=== PATIENT | female | born 1970 | race African-American/Black ===

== ENCOUNTER 2016-12-25 17:56 | Emergency (ER) | payer SELFPAY ==
[2016-12-25 17:59] VITALS: BP 142/74
[2016-12-25] MEDS ORDERED: ORPHENADRINE CITRATE 60 MG/2 ML VIAL. IM ONE (18:30)
[2016-12-25] MEDS ORDERED: KETOROLAC TROMETHAMINE 60 MG/2 ML SYRINGE. IM ONE (18:30)
[2016-12-25] MEDS ORDERED: METH-37 PO (19:14)
[2016-12-25] MEDS ORDERED: HYDR-971 PO (19:14)
--- NOTE | 2016-12-25 19:15 | PHYS DOC ---
Past Medical History Past Medical History: No Pertinent History, Asthma Past Surgical History: No Surgical History Additional Information: Nonsmoker Alcohol Use: Occasionally Drug Use: Marijuana Adult General Chief Complaint Chief Complaint: [facility] HPI Patient is a 46 year old female who presents with shoulder pain for one month. She states that the pain started after cleaning her home. She denies any specific injury. She has been taking Tylenol and aspirin for pain at home without relief. She denies any chest pain or shortness of breath. Pain is worse with movement of the arm. The patient does not have a history of hypertension, hyperlipidemia, or diabetes. She is left-hand dominant. She does not have a PCP. Review of Systems Review of Systems Constitutional: Denies fever or chills. [] Respiratory: Denies cough or shortness of breath. [] Cardiovascular: Denies chest pain, palpitations or edema. [] Musculoskeletal: Denies back pain. Reports left shoulder pain. Integument: Denies rash or skin lesions. [] Neurologic: Denies headache, focal weakness or sensory changes. [] All systems reviewed and negative unless otherwise stated in the HPI. Current Medications Current Medications Current Medications Medications (Trade) Dose Ordered Sig/[facility] Start Time Stop Time Status Last Admin Dose Admin Ketorolac Tromethamine (Toradol Im) 60 mg 1X ONCE 12/25/16 18:30 12/25/16 18:31 DC 12/25/16 18:41 60 MG Orphenadrine Citrate (Norflex) 60 mg 1X ONCE 12/25/16 18:30 12/25/16 18:31 DC 12/25/16 18:40 60 MG Allergies Allergies Allergies Coded Allergies Type Severity Reaction Last Updated Verified No Known Drug Allergies 01/06/15 No Physical Exam Physical Exam Constitutional: Well developed, well nourished, no acute distress, non-toxic appearance. [] HENT: Normocephalic, atraumatic, oropharynx moist. [] Eyes: PERRLA, EOMI, conjunctiva normal, no discharge. [] Neck: Normal range of motion, no midline or paraspinal tenderness, supple, no stridor. [] Cardiovascular: Heart rate regular rhythm, no murmur. [] Lungs & Thorax: Bilateral breath sounds clear to auscultation without wheezes, rales, or rhonchi. There is no chest wall tenderness. Skin: Warm, dry, no erythema, no rash. [] Back: No midline tenderness, no CVA tenderness. [] Extremities: Diffuse left shoulder tenderness with A/C joint tenderness, significantly decreased abduction due to pain, no edema. 2+ radial and ulnar pulses. Less than 2 second capillary refill in the fingers. Light touch sensation intact in the fingers. There is no tenderness of the elbow, wrist, or hand. FROM of elbow, wrist, hand. Neurologic: Alert and oriented X 3, normal motor function, normal sensory function, no focal deficits noted. [] Psychologic: Affect normal, judgement normal, mood normal. [] Current Patient Data Vital Signs Vital Signs Date Time Temp Pulse Resp B/P Pulse Ox O2 Delivery O2 Flow Rate FiO2 12/25/16 17:59 97.9 64 20 100 Room Air 97.9 EKG EKG [] Radiology/Procedures Radiology/Procedures Three-view x-ray of the left shoulder reviewed and interpreted by myself with Dr. Brooks. There is mild A/C separation without acute fracture or other abnormality. Course & Med Decision Making Course & Med Decision Making Pertinent Labs and Imaging studies reviewed. (See chart for details) Patient presents with atraumatic left shoulder pain for one month. Pain is worse with movement of the arm. There is no associated chest pain or shortness of breath. On exam, the patient has tenderness to palpation and has decreased range of motion of the shoulder. She is neurovascularly intact without evidence of compartment syndrome. X-ray shows mild acromioclavicular separation without other acute abnormalities. The patient was provided with a sling for comfort. She is discharged with prescription for [place] and Robaxin. She is given contact information for orthopedics for follow-up. Return precautions were discussed. She verbalizes understanding and agrees with plan. Dragon Disclaimer Dragon Disclaimer This electronic medical record was generated, in whole or in part, using a voice recognition dictation system. Departure Departure Impression: Primary Impression: Shoulder pain, left Additional Impression: Acromioclavicular joint separation Disposition: 01 HOME, SELF-CARE Condition: STABLE Referrals: THERESA SCHNEIDER MD Patient Instructions: Acromioclavicular Injuries, [id number], Shoulder Pain, [id number] Additional Instructions: You have a mild separation of the joint between the collarbone in the shoulder blade. There were no other abnormalities on your x-ray. Please use the provided sling as needed for comfort. Please take the prescribed medication as directed. Do not drive or operate heavy machinery while taking these medications. Please follow-up with the orthopedic doctor listed below if your pain continues. Return to the emergency department if you have any new or concerning symptoms. Scripts Methocarbamol (Robaxin)500 Mg [id number] Mg PO QID #20 TAB Prov:TIMOTHY BROOKS 12/25/16 Hydrocodone/Apap 5-325 (Trent[place] 5-325 Tablet)1 Each Tablet1 Tab PO PRN Q6HRS PRN PAIN #20 TAB Prov:TIMOTHY BROOKS 12/25/16 Problem Qualifiers Primary Impression: Shoulder pain, left Chronicity: acute Qualified Code: M25.512 - Pain in left shoulder Additional Impression: Acromioclavicular joint separation Encounter type: initial encounter Laterality: left Qualified Code: S43.102A - Unspecified dislocation of left acromioclavicular joint, initial encounter TIMOTHY BROOKS Dec 25, 2016 19:15
--- NOTE | 2016-12-26 08:20 | RAD ---
Examination: 3 views of the left shoulder History: History of pain for one month, no injury Comparison: None available Findings: The humeral head is within the glenoid. There is minimal widening appearance of the acromioclavicular joint. There is no acute fracture identified. Impression: 1. No acute fracture identified. 2. There is mild widened appearance of the acromioclavicular joint could be secondary to positioning of the patient or due to mild AC joint separation. Correlate clinically.
== END 2016-12-25 19:23 | disposition home or self-care (01) ==
LOC: ER 17:56
DX: S43.102A Unspecified dislocation of left acromioclavicular joint, initial encounter (principal); F12.10 Cannabis abuse, uncomplicated; J45.909 Unspecified asthma, uncomplicated; X58.XXXA Exposure to other specified factors, initial encounter; Y93.E9 Activity, other interior property and clothing maintenance; Y92.009 Unspecified place in unspecified non-institutional (private) residence as the place of occurrence of the external cause; Y99.8 Other external cause status
CPT/HCPCS: 73030; 96372; 99284; J1885; J2360

== ENCOUNTER 2021-03-25 14:03 | Emergency (ER) | payer SELFPAY ==
[~2021-03-25] VITALS: Ht 157.5 cm; Wt 100.0 kg
[~2021-03-25 14:03] MED LIST: HYDR-3164 PO; METH-37 PO
[2021-03-25 14:35] VITALS: BP 146/79
[2021-03-25] MEDS ORDERED: DIPH,PERTUSS(ACELL),TET VAC/PF 0.5 ML SYRINGE. VAX IM ONE (14:45)
[2021-03-25] MEDS ORDERED: LIDOCAINE 2%/EPI 1:100,000 20 ML VIAL. INJ ONE (15:00)
[2021-03-25] MEDS ORDERED: CEPH500C PO (16:11)
--- NOTE | 2021-03-25 16:11 | ED.ADGEN ---
Past Medical History Past Medical History: Asthma Past Surgical History: No Surgical History Smoking Status: Current Every Day Smoker Alcohol Use: Occasionally Drug Use: Marijuana General Adult EDM: Chief Complaint: LACERATION/AVULSION HPI: HPI: Patient is a 50 year old AA female who presents emergency department with complaints of 2 lacerations to her lower left leg. Patient states that she was going up some steps and she fell and hit her legs on them that is how the lacerations occurred. Patient reports several years ago she had a dog bite in the affected area and she believes that the dog bites just opened again. She denies any numbness, tingling, or decreased sensation of the affected extremity. She is not sure when her last tetanus shot was. She currently rates pain a 5 out of 10 on pain scale, she denies any alleviating factors, the pain is worse if the areas are touched. Review of Systems: Review of Systems: Complete ROS is negative unless otherwise noted in HPI. Current Medications: Current Medications Medications (Trade) Dose Ordered Sig/Sonny Start Time Stop Time Status Last Admin Dose Admin Diphtheria/ Tetanus/Acell Pertussis (ADACEL TDap SYRINGE) 0.5 ml ONCE ONCE 03/25/21 14:45 03/25/21 14:47 DC 03/25/21 15:07 0.5 ML Lidocaine/ Epinephrine (LIDOCAINE 2%-EPI 1:100,000 multi-dose) 20 ml 1X ONCE 03/25/21 15:00 03/25/21 15:01 DC 03/25/21 15:06 20 ML Allergies: Allergies: Allergies Coded Allergies Type Severity Reaction Last Updated Verified No Known Drug Allergies 01/06/15 No Physical Exam: PE: See Above Constitutional: Well developed, well nourished, no acute distress, non-toxic appearance. [] HENT: Normocephalic, atraumatic, bilateral external ears normal, nose normal. [] Eyes: PERRLA, EOMI, conjunctiva normal, no discharge. [] Neck: Normal range of motion, no stridor. [] Cardiovascular:Heart rate regular rhythm Lungs & Thorax: Respirations even and unlabored, no retractions, no respiratory distress Skin: Warm, dry, no erythema, no rash; 2 lacerations to the anterior lower left leg, the superior laceration is stellate without any active bleeding or visible foreign body measuring roughly 4 cm total; the inferior laceration is curved and linear measuring 6 cm without any active bleeding or visible foreign body. [] Extremities: LLE: No bony tenderness or deformity, no crepitus, no cyanosis, ROM intact, no edema, 2+ posterior tibial pulse, sensation intact [] Neurologic: Alert and oriented X 3, no focal deficits noted. [] Psychologic: Affect normal, judgement normal, mood normal. [] Current Patient Data: Vital Signs: Vital Signs Date Time Temp Pulse Resp B/P (MAP) Pulse Ox O2 Delivery O2 Flow Rate FiO2 03/25/21 14:35 98.9 73 18 146/79 (101) 94 Room Air 98.9 EKG: EKG: [] Heart Score: C/O Chest Pain: No Risk Scores: Score 0 - 3: 2.5% MACE over next 6 weeks - Discharge Home Score 4 - 6: 20.3% MACE over next 6 weeks - Admit for Clinical Observation Score 7 - 10: 72.7% MACE over next 6 weeks - Early Invasive Strategies Radiology/Procedures: Radiology/Procedures: Laceration Repair by me: Anesthesia: 2% % lidocaine locally Location: Superior lower left extremity Tendon/Joint/Nerves: No injury Foreign body: None detected after copious irrigation and exploration with NS and chlorhexidine Technique: 8 Simple Interrupted Sutures with 4-0 Prolene Complexity: No subcutaneous sutures/mucosal repair/edge excision Post Closure Length: 4 cm Anesthesia: 2% % lidocaine locally Location: Inferior anterior lower left extremity Tendon/Joint/Nerves: No injury Foreign body: None detected after copious irrigation and exploration with NS and chlorhexidine Technique: 9 Simple Interrupted Sutures with with 4-0 Prolene Complexity: No subcutaneous sutures/mucosal repair/edge excision Post Closure Length: 6 cm Patient's bleeding was easily controlled in the department and there is no indication of anemia. No evidence of compartment syndrome, neurologic injury, vascular injury, open joint, tendon laceration, or foreign body. Patient is appropriate for outpatient follow up. Scar minimazation instructions given. [] [] Course & Med Decision Making: Course & Med Decision Making Pertinent Labs and Imaging studies reviewed. (See chart for details) [] Dragon Disclaimer: Dragon Disclaimer: This electronic medical record was generated, in whole or in part, using a voice recognition dictation system. Departure Departure Impression: Primary Impression: Laceration of left lower leg without foreign body Additional Impressions: Laceration of left lower leg Need for Tdap vaccination Disposition: 01 HOME / SELF CARE / HOMELESS Condition: STABLE Referrals: NO PCP (PCP) Patient Instructions: Laceration Care, Adult, [id number], VIS, Tetanus, Diphtheria (Td); Tetanus, Diphtheria, Pertussis (Tdap) - CDC Additional Instructions: Fill the prescription and use as directed. Keep the area clean and dry. You may take Tylenol or ibuprofen as needed for pain. Keep the dressing that was placed today on for 24 hours then wash the affected area twice daily with soap and water and apply dressings as needed. Follow-up with your primary care doctor, or return to the emergency room in 10-14 days to have the sutures removed, sooner if you develop signs of infection including: redness, warmth, drainage, or a fever. [facility] [address] [place] [address] [facility] [address] [place] [address] [facility] [address] [facility] [place] [address] [facility] [address] [place] [address] [facility] [address] [place] [address] [facility] [address] [place] [address] [facility] [address] [place] [address] [facility] [place] [address] [place] [address] [facility] [address] [place] [address] [facility] [address] [place] [address] Scripts Cephalexin (CEPHALEXIN) 500 Mg Capsule 1 CAP PO TID for 7 Days, #21 CAP 0 Refills Prov: MARIA DOLORES VENEGAS APRN 03/25/21 Problem Qualifiers Primary Impression: Laceration of left lower leg without foreign body Encounter type: initial encounter Qualified Codes: S81.812A - Laceration without foreign body, left lower leg, initial encounter Additional Impressions: Laceration of left lower leg Encounter type: initial encounter Qualified Codes: S81.812A - Laceration without foreign body, left lower leg, initial encounter MARIA DOLORES VENEGAS APRN Mar 25, 2021 16:11
== END 2021-03-25 16:18 | disposition home or self-care (01) ==
LOC: ER 14:03
DX: S81.812A Laceration without foreign body, left lower leg, initial encounter (principal); J45.909 Unspecified asthma, uncomplicated; F17.200 Nicotine dependence, unspecified, uncomplicated; W18.09XA Striking against other object with subsequent fall, initial encounter; Y93.89 Activity, other specified; Y92.89 Other specified places as the place of occurrence of the external cause; Y99.8 Other external cause status
CPT/HCPCS: 12004; 90471; 90715; 99283; J3490

== ENCOUNTER 2021-04-08 14:17 | Emergency (ER) | payer SELFPAY ==
[~2021-04-08] VITALS: Ht 157.5 cm; Wt 94.0 kg
[~2021-04-08 14:17] MED LIST changes: +CEPH500C PO
[2021-04-08 14:46] VITALS: BP 145/86
--- NOTE | 2021-04-08 16:04 | PHYS DOC ---
Past Medical History Past Medical History: Asthma Past Surgical History: No Surgical History Smoking Status: Current Every Day Smoker Alcohol Use: Occasionally Drug Use: Marijuana General Adult EDM: Chief Complaint: WOUND RECHECK/SUTURE REMOVAL HPI: HPI: Patient is a 50 year old female who presents with March 25 she said she fell off her porch and incurred a laceration to her left torres area. She is here today for suture removal. She states she was placed on Keflex antibiotic for this. She states she finished that. She does still have some tenderness towards the lower half of the leg. There is also purulent drainage. She denies fever, increased pain or numbness or tingling or focal weakness. She states that over the laceration area it still feels tight. Patient has a history of asthma. Patient at this time denies any pain but it is tender. Review of Systems: Review of Systems: Constitutional: Denies fever or chills. [] Eyes: Denies change in visual acuity. [] HENT: Denies nasal congestion or sore throat. [] Respiratory: Denies cough or shortness of breath. [] Cardiovascular: Denies chest pain or edema. [] GI: Denies abdominal pain, nausea, vomiting, bloody stools or diarrhea. [] : Denies dysuria. [] Musculoskeletal: Denies back pain or joint pain. [] Integument: Denies rash. +Left torres laceration with sutures. +Purulent phoebe inage[] Neurologic: Denies headache, focal weakness or sensory changes. [] Endocrine: Denies polyuria or polydipsia. [] Lymphatic: Denies swollen glands. [] Psychiatric: Denies depression or anxiety. [] Heart Score: C/O Chest Pain: No Risk Factors: Risk Factors: DM, Current or recent (<one month) smoker, HTN, HLP, family history of CAD, obesity. Risk Scores: Score 0 - 3: 2.5% MACE over next 6 weeks - Discharge Home Score 4 - 6: 20.3% MACE over next 6 weeks - Admit for Clinical Observation Score 7 - 10: 72.7% MACE over next 6 weeks - Early Invasive Strategies Allergies: Allergies: Allergies Coded Allergies Type Severity Reaction Last Updated Verified No Known Drug Allergies 01/06/15 No Physical Exam: PE: Constitutional: Well developed, well nourished, no acute distress, non-toxic appearance. [] HENT: Normocephalic, atraumatic, bilateral external ears normal, oropharynx moist, no oral exudates, nose normal. [] Eyes: PERRLA, EOMI, conjunctiva normal, no discharge. [] Neck: Normal range of motion, no tenderness, supple, no stridor. [] Cardiovascular:Heart rate regular rhythm, no murmur [] Lungs & Thorax: Bilateral breath sounds clear to auscultation [] Abdomen: Bowel sounds normal, soft, no tenderness, no masses, no pulsatile masses. [] Skin: Warm, dry, no erythema, no rash. Sutured laceration with the bottom 1 to 2 inch purulent drainage. [] Back: No tenderness, no CVA tenderness. [] Extremities: Left lower extremity torres laceration tenderness, no cyanosis, no clubbing, ROM intact, 1+edema. [] Neurologic: Alert and oriented X 3, normal motor function, normal sensory function, no focal deficits noted. [] Psychologic: Affect normal, judgement normal, mood normal. [] Current Patient Data: Vital Signs: Vital Signs Date Time Temp Pulse Resp B/P (MAP) Pulse Ox O2 Delivery O2 Flow Rate FiO2 04/08/21 14:46 98.4 67 16 145/86 (105) 100 Room Air 98.4 EKG: EKG: [] Radiology/Procedures: Radiology/Procedures: [] Impression: [facility] [address] [place] [address] IMAGING REPORT Signed PATIENT: MANISH GONZALEZ EACCOUNT: [id number] : 1970 LOCATION: ER AGE: 50 SEX: F EXAM STATUS: REG ER ORD. PHYSICIAN: LOUIE CUI APRN REASON: infected laceration PROCEDURE: TIBIA FIBULA LEFT Exam performed: X-ray left tibia-fibula. HISTORY: Infected laceration. DATE OF SERVICE: 04/08/2021. COMPARISON: None available FINDINGS: AP and lateral view of the left tibia fibula demonstrate normal alignment of the knee and ankle joint. There is no acute fracture or dislocation.. There is soft tissue swelling around the ankle joint. No foreign body. IMPRESSION: Soft tissue swelling around the ankle joint. No acute bony abnormality seen. Electronically signed by: Zara Worley MD (04/08/2021 4:17 PM) [id number] DICTATED and SIGNED BY: ZARA WORLEY MD DATE: 04/08/21 [id number] Course & Med Decision Making: Course & Med Decision Making Pertinent Labs and Imaging studies reviewed. (See chart for details) See HPI. Alert and oriented x4. Ambulatory steady gait. Skin pink warm and dry. Over the laceration area edges are approximated but there is purulent drainage towards the bottom 1 to 2 inch area. No cellulitis. There is tenderness also over this area of the laceration. She is afebrile. Popliteal pulse present. Patient will be placed on Bactrim antibiotic. The leg was never x-rayed so I will x-ray the leg at this visit. No calf tenderness. She denies any shortness of breath or chest pain. 14 sutures removed by Oneida LUTZ. [] Danielito Disclaimer: Danielito Disclaimer: This electronic medical record was generated, in whole or in part, using a voice recognition dictation system. Departure Departure Impression: Primary Impression: Visit for suture removal Additional Impression: Wound infection Disposition: HOME / SELF CARE / HOMELESS Condition: STABLE Referrals: NO PCP (PCP) Patient Instructions: Wound Infection Additional Instructions: Follow-up with primary care provider. You can always come back here in 48 hours for wound recheck. Use ice and elevation to help with any kind of pain or swelling. Scripts Sulfamethoxazole/Trimethoprim (BACTRIM DS TABLET) 1 Each Tablet 1 TAB PO BID for 10 Days, #20 TAB 0 Refills Prov: LOUIE CUI APRN 04/08/21 LOUIE CUI APRN Apr 08, 2021 16:04
--- NOTE | 2021-04-08 16:20 | RAD ---
Exam performed: X-ray left tibia-fibula. HISTORY: Infected laceration. DATE OF SERVICE: 04/08/2021. COMPARISON: None available FINDINGS: AP and lateral view of the left tibia fibula demonstrate normal alignment of the knee and ankle joint . There is no acute fracture or dislocation.. There is soft tissue swelling around the ankle joint. N o foreign body. IMPRESSION: Soft tissue swelling around the ankle joint. No acute bony abnormality seen. Electronically signed by: Zara Worley MD (04/08/2021 4:17 PM) [id number]
[2021-04-08] MEDS ORDERED: SULF1TAB24 PO (16:33)
== END 2021-04-08 17:33 | disposition home or self-care (01) ==
LOC: ER 14:17
DX: S81.812D Laceration without foreign body, left lower leg, subsequent encounter (principal); J45.909 Unspecified asthma, uncomplicated; F17.200 Nicotine dependence, unspecified, uncomplicated; W18.39XD Other fall on same level, subsequent encounter
CPT/HCPCS: 73590; 99283